=== PATIENT | male | born 1940 | race Caucasian/White ===

== ENCOUNTER → 2019-04-11 | Outpatient (CLI) | payer MEDICARE, OTHER ==
--- NOTE | 2019-04-12 14:36 | PCVCIMAG ---
APPROVED REPORT Study performed: 04/11/2019 16:09:10 Exam: Stress Echocardiogram Indication: Hypertension Patient Location: Echo lab Stress Nurse: Maryellen Chang RN Room #: 2 Status: routine Ht: 5 ft 10 in HR: 99 bpm BP: 118/78 mmHg Rhythm: NSR Medical History Medical History: Diabetes, HTN, Fatigue Cardiac Risk Factors: HTN, DM Previous Cardiac Procedures: none Pretest Chest Pain Characteristics: No chest pain Exercise History: Sedentary Procedure The patient underwent an Exercise Stress Test using the Aliyah Protocol. Blood pressure, heart rate, and EKG were monitored. An Echocardiogram was performed by fuel storage technician in four stages in quad fashion. At peak stress, four selected images were obtained and placed side by side with resting images for comparison. Stress Test Details Stress Test: Exercise stress testing was performed using a Aliyah protocol. HR Resting HR: 99 bpmMax Heart Rate (APMHR): 144 bpm Max HR Achieved: 164 bpmTarget HR (85% APMHR): 122 bpm % of APMHR: 113 Recovery HR: 115 bpm HR response to stress: Normal HR response to stress BP Resting BP: 118/78 mmHg Max BP: 152/80 mmHg Recovery BP: 124/74 mmHg BP response to stress: Normal blood pressure response to stress. ECG Resting ECG: Sinus Rhythm Stress ECG: Sinus Rhythm, NSSTT changes ST Change: Non-ischemic Maximum ST Deviation: -1.9 mm Arrhythmia: Short runs PACs, occasional isolated PVCs Recovery ECG: Sinus Rhythm, NSSTT changes Recovery ST Change: Non-ischemic Recovery ST Deviation: -1.15 mm Recovery Arrhythmia: PACs Clinical Reason for Termination: Maximal effort Stress Symptoms: Fatigue Exercise duration: 6 min 30 sec Highest Stage Achieved: Stage 3: 3.4 mph at 14% grade. Exercise capacity: 8.5 METs Overall Exercise Capacity for Age: Average Angina Score: None No complications. Stress ECG Conclusion The patient exercised according to the ALIYAH protocol for 6:30 mins; achieving a work level of 8.5 METS. The resting heart rate of 99 bpm rachana to a maximum heart rate of 164 bpm. This value represent 113% of the maximal, age-predicted heart rate. The resting blood pressure of 118/78 mmHg, rachana to a maximum blood pressure of 152/80mmHg. The exercise test was stopped due tofatigue. Garcia Treadmill Score is 15.5 which is Low risk. Pre-Stress Echo The resting Echocardiogram showed normal left ventricular contractility with an estimated Ejection Fraction of about 55-60%. Normal wall motion in all segments on baseline images. Post-Stress Echo The stress Echocardiogram showed normal left ventricular contractility with an estimated Ejection Fraction of about 65-70%. Normal augmentation of wall motion in all segments on post stress images. Clinical No clinical or ECG evidence for ischemia. Conclusion Clinical Response: Non-ischemic Exercise Capacity: Average Stress ECG Response: Non-ischemic Stress Echo Images: Non-ischemic No echocardiographic evidence for exercise induced ischemia. No clinical, EKG or echocardiographic evidence for ischemia. Normal stress echocardiogram with maximal exercise stress. No prior study available for comparison. <Conclusion> No echocardiographic evidence for exercise induced ischemia. No clinical, EKG or echocardiographic evidence for ischemia. Normal stress echocardiogram with maximal exercise stress.
== END | disposition home or self-care (01) ==
LOC: PCVCIMAG 15:50
PROVIDERS: ATTEND Internal Medicine Cardiovascular Disease
DX: I10 Essential (primary) hypertension (principal); E11.9 Type 2 diabetes mellitus without complications
CPT/HCPCS: 93325; 93351

== ENCOUNTER → 2019-05-13 | Outpatient (CLI) | payer MEDICARE, OTHER ==
--- NOTE | 2019-05-13 10:12 | PCVCIMAG ---
APPROVED REPORT Study performed: 05/13/2019 08:41:57 EXAM: Comprehensive 2D, Doppler, and color-flow Echocardiogram Patient Location: Echo lab Status: routine BSA: 2.26 HR: 83 bpmBP: 140/84 mmHg Rhythm: NSR Indications Dyspnea peripheral edema, assess PAP, assess diastolic function 2D Dimensions IVSd: 14.32 (7-11mm) LVDd: 50.49 mm PWd: 13.72 (7-11mm)Ascending Ao: 34.41 (22-36mm) LVDs: 36.46 (25-40mm) Left Atrium: 42.78 (27-40mm) Aortic Root: 34.13 mm LV Single Plane 4CH: 50.62 % LV Single Plane 2CH: 49.50 % Biplane EF: 48.4 % Volumes Left Atrial Volume (Systole) Single Plane 4CH: 62.65 mLSingle Plane 2CH: 56.09 mL LA ESV Index: 28.00 mL/m2 Aortic Valve AoV Peak Jhonny.: 1.63 m/s AO Peak Gr.: 10.61 mmHgLVOT Max P.93 mmHg LVOT Max V: 0.86 m/s Mitral Valve E/A Ratio: 1.2 MV Decel. Time: 172.38 ms MV E Max Jhonny.: 0.63 m/s MV A Jhonny.: 0.53 m/s IVRT: 124.57 ms Pulmonary Valve PV Peak Jhonny.: 1.26 m/sPV Peak Gr.: 6.32 mmHg Pulmonary Vein P Vein S: 0.30 m/sP Vein A: 0.31 m/s P Vein D: 0.45 m/sP Vein A Dur.: 134.9 msec P Vein S/D Ratio: 0.67 Tricuspid Valve TR Peak Jhonny.: 2.60 m/s TR Peak Gr.: 27.13 mmHg TV Vmax: 0.49 m/s Left Ventricle The left ventricle is normal size. There is normal LV segmental wall motion. Mild concentric left ventricular hypertrophy. Left ventricular systolic function is normal. The left ventricular ejection fraction is within the normal range. LVEF is 50-55%. Grade I - abnormal relaxation pattern. Right Ventricle The right ventricle is normal size. The right ventricular systolic function is normal. Atria The left atrium size is normal. The right atrium size is normal. Aortic Valve The aortic valve is normal in structure. No aortic regurgitation is present. There is no aortic valvular stenosis. Mitral Valve The mitral valve is normal in structure. Trace mitral regurgitation. No evidence of mitral valve stenosis. Tricuspid Valve The tricuspid valve is normal in structure. Mild tricuspid regurgitation with PAP of 34 mmHg. Pulmonic Valve The pulmonary valve is normal in structure. There is no pulmonic valvular regurgitation. Great Vessels The aortic root is normal in size. IVC is normal in size and collapses >50% with inspiration. Pericardium There is no pericardial effusion. There is no pleural effusion. <Conclusion> The left ventricle is normal size. Mild concentric left ventricular hypertrophy. LVEF is 50-55%. Grade I - abnormal relaxation pattern. The aortic valve is normal in structure. Trace mitral regurgitation. Mild tricuspid regurgitation with PAP of 34 mmHg. The aortic root is normal in size. There is no pericardial effusion.
== END | disposition home or self-care (01) ==
LOC: PCVCIMAG 08:53
PROVIDERS: ATTEND Internal Medicine Cardiovascular Disease
DX: I07.1 Rheumatic tricuspid insufficiency (principal); I11.9 Hypertensive heart disease without heart failure; R60.9 Edema, unspecified
CPT/HCPCS: 93306